=== PATIENT | female | born 1960 | race African-American/Black ===

== ENCOUNTER → 2019-09-17 | Outpatient (CLI) | payer BC ==
[2014-12-10 10:56] VITALS: BP 123/91
[~2019-09-17] MED LIST: ALPR0.5T PO; AMOX500T PO; Amoxicillin PO; CIPR500T94 PO; CLAR-7 PO; METO5TAB55 PO; Mirtazapine PO; ONDA4TAB7 PO; PANT40TA3 PO; POTA10TA12 PO; QUET25TA5 PO; SUCR1TAB35 PO
--- NOTE | 2019-09-21 15:51 | RAD ---
BILATERAL SCREENING MAMMOGRAM History: Routine screening. Comparison: 08/21/2018, 08/13/2017, 05/28/2016, 04/26/2015. Technique: Routine bilateral digital mammogram views were obtained. Findings: Breast Tissue Density B : There are scattered areas of fibroglandular density. There are no dominant masses, suspicious microcalcifications, or architectural distortion. IMPRESSION: No mammographic evidence of malignancy. Recommend routine screening. BI-RADS category 1: Negative. The images were reviewed with computer aided detection. Patient information is entered into the reminder system with a target due date for the next screening mammogram. Mammography is the most sensitive method for finding small breast cancers, but it does not detect them all and is not a substitute for careful clinical examination. A negative mammogram does not negate a clinically suspicious finding and should not result in delay in biopsying a clinically suspicious abnormality. "Our facility is accredited by the [employer] Mammography [employer]." Electronically signed by: Nino Sullivan MD (09/21/2019 3:48 PM) [email or web address]
== END | disposition home or self-care (01) ==
LOC: MAMMO 07:44
PROVIDERS: ATTEND Family Medicine
DX: Z12.31 Encounter for screening mammogram for malignant neoplasm of breast (principal)
CPT/HCPCS: 77067

== ENCOUNTER → 2020-09-16 | Outpatient (CLI) | payer BC ==
[2014-12-10 10:56] VITALS: BP 123/91
--- NOTE | 2020-09-16 14:02 | RAD ---
MG 2D BILAT SCREENING 09/16/2020 10:34 AM INDICATION: Asymptomatic screening mammogram. COMPARISON: 09/17/2019, 08/21/2018 TECHNIQUE: 2D CC and MLO projections were obtained of each breast. FINDINGS: Breast density: Category B: There are scattered areas of fibroglandular density. Right breast: There are no suspicious microcalcifications, masses or areas of architectural distortio n. Left breast: There are no suspicious microcalcifications, masses or areas of architectural distortion . Bilateral mammogram is compared to prior examinations appears unchanged. IMPRESSION: Negative bilateral mammogram. BI-RADS category: 1; Negative Recommendations: Recommend annual screening mammography in one year. Electronically signed by: Amanda Lubin MD (09/16/2020 2:00 PM) [email or web address]
== END ==
LOC: MAMMO 10:21
PROVIDERS: ATTEND Family Medicine
DX: Z12.31 Encounter for screening mammogram for malignant neoplasm of breast (principal)
CPT/HCPCS: 77067